=== PATIENT | female | born 2000 | race Caucasian/White ===

== ENCOUNTER 2019-12-27 10:50 | Outpatient (CLI) | payer BC, SELFPAY ==
--- NOTE | ~2019-12-27 | US_ITS ---
EXAMINATION: US OB follow up DATE: 12/27/2019 11:36 INDICATION: Routine care during third trimester . TECHNIQUE: Real-time ultrasound of the pelvis was performed. The interpreting radiologist was not pre sent for the study. COMPARISON: None. FINDINGS: There is a single living fetus in vertex presentation. The placenta is anterior. heart rate is 152 beats per minute (bpm). The amniotic fluid index is 10.7 cm, which is normal (5th%-95%: 8.3-24. 5 cm at 33 weeks estimated gestational age). The following biometric data were obtained: BPD: 7.8 cm -> 31 weeks 3 days Head circumference: 30.7 cm -> 34 weeks 1 days Abdominal circumference: 30.2 cm -> 34 weeks 1 days Femur length: 6.4 cm -> 33 weeks 1 days These measurements are concordant. Head circumference to abdominal circumference ratio: 1.01 (normal range 0.96-1.11). Estimated weight: 2239 g (+/-) 336 g. or 4 lbs. 15 oz. (+/-) 12 oz. IMPRESSION: 1. Single living fetus in vertex presentation with heart rate of 152 bpm. 2. Gestational age by ultrasound of 33 weeks 2 day(s) +/- 2 week(s) 2 day(s) with ultrasound estimate d date of delivery (ARON) of 02/12/2020. Estimated weight is 40th percentile by Hadlock criteria when 02/09/2020 is used as the ARON. Please correlate with clinical information or earlier ultrasound s for most accurate ARON. 3. Normal amniotic fluid index of 10.7 cm. Reviewed, dictated and finalized at location A. L DESIGNER IMPRESSION: 1. Single living fetus in vertex presentation with heart rate of 152 bpm. 2. Gestational age by ultrasound of 33 weeks 2 day(s) +/- 2 week(s) 2 day(s) wi th ultrasound estimated date of delivery (ARON) of 02/12/2020. Estimated w eight is 40th percentile by Hadlock criteria when 02/09/2020 is used as the ARON . Please correlate with clinical information or earlier ultrasounds for most ac curate ARON. 3. Normal amniotic fluid index of 10.7 cm.
== END 2019-12-27 10:51 | disposition home or self-care (01) ==
LOC: ANHIMG 11:01
PROVIDERS: Visit Provider Physician Assistant
DX: Z34.93 Encounter for supervision of normal pregnancy, unspecified, third trimester (principal); Z3A.33 33 weeks gestation of pregnancy
CPT/HCPCS: 76816

== ENCOUNTER 2020-01-29 12:58 | Outpatient (CLI) | payer BC, SELFPAY ==
--- NOTE | ~2020-01-29 | US_ITS ---
EXAMINATION: US OB follow up DATE: 01/29/2020 14:25 INDICATION: growth assessment during third trimester TECHNIQUE: Real-time ultrasound of the pelvis was performed. The interpreting radiologist was not pre sent for the study. COMPARISON: 12/27/2019 FINDINGS: There is a single living fetus in vertex presentation. The placenta is anterior. card iac activity and movement are noted. heart rate is 133 beats per minute (bpm). The amniot ic fluid index is 15.9 cm which is normal. The following biometric data were obtained: Biparietal diameter (BPD): 8.4 cm; head circumference (HC): 30.7 cm; abdominal circumference (AC): 34 .1 cm; femur length (FL): 6.8 cm. The head circumference to abdominal circumference ratio is greater than two standard deviations below the mean. These measurements are otherwise concordant. Estimated weight is 2946 g +/- 441 g, which correlates with the 19th percentile when 02/09/2020 is used as estimated date of delivery. As single measurements, these parameters are each equal to the following estimated gestational ages w ith ranges of +/- 2 standard deviations: BPD: 34 weeks 0 days +/- 3 weeks 1 days. HC: 34 weeks 2 days +/- 3 weeks 0 days. AC: 38 weeks 0 days +/- 3 weeks 0 days. FL: 35 weeks 2 days +/- 3 weeks 0 days. estimated gestational age based solely on measurements from this exam is 35 weeks 3 days +/- 2 weeks 3 days. IMPRESSION: 1. Single living fetus in vertex presentation. 2. Normal amniotic fluid index. 3. Estimated weight is 2946 g +/- 441 g, which correlates with the 19th percentile when 020 is used as estimated date of delivery. 4. Head circumference to abdominal circumference ratio greater than two standard deviations below the mean. Reviewed, dictated and finalized at location A. MING MACHINE OPERATOR IMPRESSION: 1. Single living fetus in vertex presentation. 2. Normal amniotic fluid index. 3. Estimated weight is 2946 g +/- 441 g, which correlates with the p ercentile when 02/09/2020 is used as estimated date of delivery. 4. Head circumference to abdominal circumference ratio greater than two standar d deviations below the mean.
== END 2020-01-29 12:59 | disposition home or self-care (01) ==
PROVIDERS: PCP Physician Assistant; Visit Provider Physician Assistant
DX: Z34.93 Encounter for supervision of normal pregnancy, unspecified, third trimester (principal); Z3A.35 35 weeks gestation of pregnancy
CPT/HCPCS: 76816

== ENCOUNTER 2020-01-30 04:55 | Inpatient (IN) | payer BC, SELFPAY ==
[2020-01-30] VITALS (89 sets, daily range): BP systolic 75–144; BP diastolic 31–110; PULSE 61–130; RESP 16; TEMP 36.2–36.9; O2SAT 92–100; BMI 40.3
[2020-01-30 05:30] LABS: Basophils Absolute Auto 0.1 K/mm3 (0.0-0.1); Basophils Percent Auto 0.4 % (0.2-1.2); Eosinophils Absolute Auto 0.2 K/mm3 (0-0.3); Eosinophils Percent Auto 1.5 % (0-4.4); Hematocrit 34.7 % (37.0-47.0); Hemoglobin 11.7 g/dL (12.0-15.0); Immature Granulocyte Absolute 0.09 K/mm3 (0.00-0.031); Immature Granulocyte Percent A 0.6 % (0-0.5); Lymphocytes Absolute Auto 2.92 K/mm3 (0.9-3.2); Lymphocytes Percent Auto 20.3 % (18.3-44.2); Mean Corpuscular HGB Conc 33.7 g/dl (32-36); Mean Corpuscular Hemoglobin 31.5 pg (26-34); Mean Corpuscular Volume 93.3 fl (80-100); Mean Platelet Volume 9.7 fl (7.4-10.4); Monocytes Percent Auto 7.1 % (2.6-8.5); Neutrophils Absolute Auto 10.1 K/mm3 (1.3-6.7); Neutrophils Percent Auto 70.1 % (45.5-73.1); Platelet Count Result 395 k/mm3 (150-375); Red Blood Count 3.72 M/mm3 (4.2-5.4); Red Cell Distribution Width 13.4 % (11.5-14.5); White Blood Count 14.4 K/mm3 (4.5-10.0)
[2020-01-30 05:42] LABS: Alanine Aminotransferase 11 U/L (4-35); Albumin Level 3.5 g/dL (3.5-5.1); Alkaline Phosphatase 144 U/L (38-126); Anion Gap 8 mmol/L (8-16); Aspartate Amino Transferase 18 U/L (14-36); Bilirubin,Total 0.3 mg/dL (0.2-1.3); Blood Urea Nitrogen 9 mg/dL (7-17); Calcium 8.8 mg/dL (8.4-10.2); Carbon Dioxide 21 mmol/L (22-30); Chloride 107 mmol/L (98-107); Estimated Glomerular Filt Rate > 60; Glucose 98 mg/dL (65-105); Potassium 3.9 mmol/L (3.4-5.0); Sodium 136 mmol/L (137-145)
[2020-01-30] MEDS: LACTATED RINGERS 1,000 ML 125 ML IV CONT ×4 (05:42→18:27)
[2020-01-30] MEDS: OXYTOCIN 30 UNITS/NS 500 ML 30 UNITS/500 ML BAG IV CONT (05:44)
[2020-01-30 05:47] LABS: Uric Acid 6.4 mg/dL (2.5-7.5)
--- NOTE | 2020-01-30 05:54 | LDADM ---
This patient, Lilo Gibson, was admitted to Labor/Delivery/Recovery 105 on 01/30/20 at 04:55. Plans for labor, pain management and were discussed with patient. Patient/family oriented to hospital policies and general routines including ID bracelet, bed and alarms, visiting hours, pain management, procedures, bathroom and other care routines, personal items, smoking policy, room service/diet and guest tray routines, infant security routines, and visiting hours. Patient/Family are encouraged to report perceived risks to care and to ask questions if they do not understand what they are told or what they should do. See OBIX for further documentation.
--- NOTE | 2020-01-30 06:10 | WPDANESEPP ---
Anes - Eval Pre Procedure Procedure: labor epidural Date/Time: 01/30/20 06:10 Surgeon: [email or web address] Pre Op Diagnosis: Induction of Labor Patient Data Age: 19 Gender: F Height: 1.65 m Weight: 110 kg Last Vital Signs Pulse 82 01/30/20 06:00 BP 130/74 01/30/20 06:00 Allergies Allergy/AdvReac Type Severity Reaction Status Date / Time bee venom protein (honey bee) Allergy Anaphylaxis Verified 01/11/20 15:34 [bees] Penicillins Allergy Hives Verified 01/11/20 15:34 Home Medications Medication Instructions Recorded Confirmed Type PNV cmb#95-ferrous fumarate-FA 1 tablet PO DAILY 01/11/20 01/30/20 History [] albuterol sulfate [ProAir HFA] 2 puff INHALATION QID PRN 01/11/20 01/30/20 History aspirin 81 mg PO DAILY 01/11/20 01/30/20 History folic acid 5 mg PO WEEKLY 01/11/20 01/30/20 History Laboratory Tests 01/30/20 01/30/20 01/30/20 05:19 05:19 05:19 WBC 14.4 K/mm3 H K/mm3 (4.5-10.0) RBC 3.72 M/mm3 L M/mm3 (4.2-5.4) Hgb 11.7 g/dL L g/dL (12.0-15.0) Hct 34.7 % L % (37.0-47.0) MCV 93.3 fl fl (80-100) MCH 31.5 pg pg (26-34) MCHC 33.7 g/dl g/dl (32-36) RDW 13.4 % % (11.5-14.5) Plt Count 395 k/mm3 H k/mm3 (150-375) MPV 9.7 fl fl (7.4-10.4) Immature Gran % (Auto) 0.6 % H % (0-0.5) Neut % (Auto) 70.1 % % (45.5-73.1) Lymph % (Auto) 20.3 % % (18.3-44.2) [place] % (Auto) 7.1 % % (2.6-8.5) Eos % (Auto) 1.5 % % (0-4.4) Baso % (Auto) 0.4 % % (0.2-1.2) Lymph # (Auto) 2.92 K/mm3 K/mm3 (0.9-3.2) [place] # (Auto) 1.0 K/mm3 H K/mm3 (0.1-0.6) Eos # (Auto) 0.2 K/mm3 K/mm3 (0-0.3) Baso # (Auto) 0.1 K/mm3 K/mm3 (0.0-0.1) Abs Immat Gran (auto) 0.09 K/mm3 H K/mm3 (0.00-0.031) Absolute Neuts (auto) 10.1 K/mm3 H K/mm3 (1.3-6.7) Absolute Nucleated RBC 0.0 K/mm3 K/mm3 (0.0-0.012) Nucleated RBC % 0.0 % % (0.0-0.2) Sodium Potassium Chloride Carbon Dioxide Anion Gap BUN Creatinine Estim Creat Clear Calc Estimated GFR Glucose Uric Acid 6.4 mg/dL mg/dL (2.5-7.5) Calcium Total Bilirubin AST ALT Alkaline Phosphatase Total Protein Albumin RPR Pending 01/30/20 05:19 WBC RBC Hgb Hct MCV MCH MCHC RDW Plt Count MPV Immature Gran % (Auto) Neut % (Auto) Lymph % (Auto) [place] % (Auto) Eos % (Auto) Baso % (Auto) Lymph # (Auto) [place] # (Auto) Eos # (Auto) Baso # (Auto) Abs Immat Gran (auto) Absolute Neuts (auto) Absolute Nucleated RBC Nucleated RBC % Sodium 136 mmol/L L mmol/L (137-145) Potassium 3.9 mmol/L mmol/L (3.4-5.0) Chloride 107 mmol/L mmol/L (98-107) Carbon Dioxide 21 mmol/L L mmol/L (22-30) Anion Gap 8 mmol/L mmol/L (8-16) BUN 9 mg/dL mg/dL (7-17) Creatinine 0.60 mg/dL L mg/dL (0.7-1.0) Estim Creat Clear Calc Not Reportable Estimated GFR > 60 (59 - ) Glucose 98 mg/dL mg/dL (65-105) Uric Acid Calcium 8.8 mg/dL mg/dL (8.4-10.2) Total Bilirubin 0.3 mg/dL mg/dL (0.2-1.3) AST 18 U/L U/L (14-36) ALT 11 U/L U/L (4-35) Alkaline Phosphatase 144 U/L H U/L (38-126) Total Protein 7.0 g/dL g/dL (6.3-8.2) Albumin 3.5 g/dL g/dL (3.5-5.1) RPR Patient hx anesthesia problems: none Family hx anesthesia problems: none PMFSH Family History Family History (Updated 01/11/20 @ 15:38 by Tate Cui, YUE) Mother Diabetes mellitus Gastritis Depression Fa
--- NOTE | 2020-01-30 06:20 | PM.IMHP ---
H&P: HPI History of Present Illness Date/Time: 01/30/20 06:20 Chief complaint: Induction of Labor Narrative: Lilo Gibson is a 19 year old female at 38w4d gestation presenting for induction of labor due to PIH. +GBS, +MTHFR, smoker and obesity 24 hour urine collection revealed 777mg protein along with her extensive edema and her BP is 30/15 above her baseline 90/50 all is c/w PIH placenta disease. I explained her condition the procedure and risks including maternal or indications for c section with risks involved including but not limited to bleeding infection injury to bladder bowel baby dvt pneumonia wound infection uti and risks of post hemorrhage She understands accepts and agrees to proceed Review of Systems Review of Systems: All systems reviewed & are unremarkable except as noted in HPI and below Constitutional: Constitutional: Reports no additional constitutional complaints and Reports weight gain Eyes: Eyes: Reports blurry vision and Reports change in vision ENT: Reports system reviewed and no additional complaints, except as documented Cardiovascular: Cardiovascular: Reports no additional cardiovascular complaints and Reports edema Respiratory: Respiratory: Reports no additional respiratory complaints Gastrointestinal: Gastrointestinal: Reports no additional gastrointestinal complaints and Reports constipation Genitourinary: Genitourinary: Reports no additional female genitourinary complaints Musculoskeletal: Musculoskeletal: Reports muscle cramps Integumentary/Breasts: Skin/Breast: Reports swelling and Reports striae Neurologic: Reports system reviewed and no additional complaints, except as documented, Reports headache(s) and Reports Other visual disturbances Psychiatric: Psychiatric: Reports no additional psychiatric complaints Endocrine: Endocrine: Reports no additional endocrine complaints Hematologic/Lymphatic: Hematologic/Lymphatic: Reports no additional hematologic/lymphatic complaints Allergic/Immunologic: Allergic/Immunologic: Reports no additional allergic/immunologic complaints FORMERLY [facility], 1928–1983 Past Medical History Medical History Asthma Compound heterozygous MTHFR mutation [id number] Depression HÉCTOR (generalized anxiety disorder) GBS (group B Streptococcus carrier), +RV culture, currently GERD (gastroesophageal reflux disease) History of miscarriage 01/04/18 Obesity 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 Smoker Surgical History Surgical History (Updated 01/30/20 @ 06:55 by Koffi Altamirano MD) History of brain surgery 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 developed seizures at that time Family History Family History (Updated 01/11/20 @ 15:38 by Tate Cui RN) Mother Diabetes mellitus Gastritis Depression Father Sibling Depression Social History Social History (Updated 01/30/20 @ 06:56 by Koffi Altamirano MD) Smoking packs per day: 0.5 Smoking cigarettes per day: 10.0 Years smoked: 5 Smoking pack-years: 2.50 Smoking status: Current every day smoker Tobacco type: cigarettes Alcohol intake: never Substance use: never Living arrangements: with family Occupation/Education: unemployed Gender identity (if verbalized by the patient): Female Sexual Orientation (if Verbalized by the Patient): Straight or Heterosexual Spiritual care concerns: No Agree to blood products: Yes Meds Home Medications and Allergies Home Medications Medication Instructions Recorded Confirmed Type PNV cmb#95-ferrous fumarate-FA 1 tablet PO DAILY 01/11/20 01/30/20 History [] albuterol sulfate [ProAir HFA] 2 puff INHALATION QID PRN 01/11/20 01/30/20 History aspirin 81 mg PO DAILY 01/11/20 01/30/20 History folic acid 5 mg PO WEEKLY 01/11/20 01/30/20 History Allergies Allergy/AdvReac Type Severity Reaction Status Date / Time bee venom protein (honey bee) Allerg
--- NOTE | 2020-01-30 06:34 | WPDHPUPDATE1 ---
History and Physical Update Update Date/Time: 01/30/20 06:34 History and Physical has been reviewed, including an updated exam of the patient. There are NO changes in the patient's condition. Risks, benefits, and alternatives have been discussed and questions answered. Patient agrees to proceed with procedure. Lilo Gibson is a 19 year old female at 38w4d gestation presenting for induction of labor due to PIH. +GBS, +MTHFR, smoker and obesity
--- NOTE | 2020-01-30 06:34 | WPDOBADMIT ---
Obstetrics - Admit Note Admission Note: record reviewed. No pertinent additions to the history and/or any subsequent changes in the physical findings that are not consistent with the expected course of the were found. Additions to the history and/or subsequent changes in the physical findings follow. None. Lilo Gibson is a 19 year old female at 38w4d gestation presenting for induction of labor due to PIH. +GBS, +MTHFR, smoker and obesity
[2020-01-30 13:34] LABS: Rapid Plasma Reagin Non-Reactive (NonReactive)
--- NOTE | 2020-01-30 17:34 | PM.OBPNLAB ---
Pain Control Date/time seen: 01/30/20 10:34 Pain control: tolerating well Comments: SROM clear amniotic fluid Pelvic Exam Dilation (cm): 4 Effacement (%): 70 station: -3 Amniotic membrane status: Ruptured Contractions Monitor mode: External Contraction frequency: 3 Contraction pattern: Regular Contraction phase: Contraction Contraction intensity: Moderate Status status: Category l Assessment and Plan Pitocin rate (mU/min): 6 Assessment: active labor Plan: continuous present management
--- NOTE | 2020-01-30 17:35 | PM.OBPNLAB ---
Pain Control Date/time seen: 01/30/20 14:35 Pain control: tolerating well and epidural Pelvic Exam Dilation (cm): 6 Effacement (%): 70 station: -3 Amniotic membrane status: Ruptured Contractions Monitor mode: Internal (iupc/fse placed) Contraction frequency: 3 Contraction pattern: Regular Contraction phase: Contraction Contraction intensity: Moderate Status status: Category l Assessment and Plan Pitocin rate (mU/min): 12 Assessment: active labor and induction ongoing Plan: continuous present management
--- NOTE | 2020-01-30 17:37 | PM.OBPNLAB ---
Pain Control Date/time seen: 01/30/20 16:37 Pain control: tolerating well and epidural Pelvic Exam Dilation (cm): 9 Effacement (%): 100 station: -2 Amniotic membrane status: Ruptured Contractions Monitor mode: Internal (iupc/fse placed) Contraction frequency: 3 Contraction pattern: Regular Contraction phase: Contraction Contraction intensity: Moderate Status status: Category l Assessment and Plan Pitocin rate (mU/min): 10 Assessment: active labor and induction ongoing Plan: continuous present management
--- NOTE | 2020-01-30 17:38 | PM.OBPNLAB ---
Pain Control Date/time seen: 01/30/20 17:30 Pelvic Exam Dilation (cm): 10 Effacement (%): 100 station: +1 Amniotic membrane status: Ruptured Contractions Monitor mode: Internal (iupc/fse placed) Contraction frequency: 3 Contraction pattern: Regular Contraction phase: Contraction Contraction intensity: Moderate Status status: Category l Assessment and Plan Assessment: active labor and other (complete stage 1) Plan: continuous present management (begin stage 2)
--- NOTE | 2020-01-30 17:39 | PM.OBPRVD ---
OB - Delivery Note Procedure Delivery date: 01/30/20 Procedure: Normal spontaneous vertex vaginal delivery a viable female infant and placenta over a second-degree midline episiotomy Repair of second-degree midline episiotomy events: Induced HTN and Labor Induction Intrapartal events: None Induction method: per pitocin protocol Delivery monitor: internal FHT and internal uterine Route of delivery: Episiotomy description: Midline Laceration Description: None Delivery repair: vicryl (2-0) Specimen: Yes (Placenta, cord blood, cord blood gases) Quantitative Blood Loss (ml): 500 Anesthesia type: Epidural Disposition: floor Complications: None Narrative: After pushing in 2nd stage of labor using maneuvers including tug of war with sheet a normal spontaneous vertex vaginal delivery occurred occiput posterior over second-degree midline episiotomy of a viable female infant which was delivered without difficulty shoulder spontaneously and placed on the maternal abdomen where the nose and throat were bulb suction or spontaneous respirations and cry and the cord was clamped and cut the was evaluated by the nursery nurse in attendance scores given 8 9 time of delivery 1912 weight 6 lb 1 oz after cord gases and cord blood were obtained the placenta was then delivered intact with a three-vessel cord the uterus contracted well with Pitocin given intravenously. Second-degree midline episiotomy was then repaired with 2 0 Vicryl suture in a running fashion with the knot left in the vagina the cervix and rectum were checked no sponges were left in the vagina fistula the sphincter was intact the hemorrhoids were decompressed and the mom was in stable condition in LDR room 105. [place] Date of : 01/30/20 Time of : 19:13 Weeks of gestation at delivery: 39 gender: Female Weight (pounds): 6 Weight (ounces): 1 presentation: vertex position: Left Occiput Posterior Placenta delivery description: Spontaneous and Normal Configuration cord vessel description: 3 Vessels score one minute: 8 score five minutes: 9 Narrative: Baby had normal transition and was taken to the nursery in stable condition no gross abnormalities on the exam
[2020-01-30] MEDS: OXYTOCIN 30 UNITS/NS 500 ML 30 UNITS/500 ML BAG 125 UNITS IV CONT (19:30)
--- NOTE | 2020-01-30 19:38 | PM.OBDSVD ---
DS: Admitting Diagnosis Admitting Diagnosis Admitting Diagnosis: Induction of Labor Term MTHFR heterozygous compound -induced edema and proteinuria without hypertension Group B strep carrier Obesity Smoker Depression GERD Maternal varicella nonimmune DS: Discharge Diagnosis Discharge Diagnosis (1) Term delivered: Code(s): O80 - Encounter for full-term uncomplicated delivery Status: Acute (2) Direct occiput posterior presentation of fetus: Code(s): O64.0XX0 - Obstructed labor due to incomplete rotation of head, not applicable or unspecified Status: Acute (3) Hemorrhoids during puerperium: Code(s): O87.2 - Hemorrhoids in the puerperium Status: Acute (4) Compound heterozygous MTHFR mutation C677T/[id number]: Code(s): E72.12 - Methylenetetrahydrofolate reductase deficiency Status: Acute (5) -induced edema and proteinuria without hypertension: Code(s): O12.20 - Gestational edema with proteinuria, unspecified trimester Status: Acute (6) GBS (group B Streptococcus carrier), +RV culture, currently : Code(s): O99.820 - Streptococcus B carrier state complicating Status: Acute (7) Depression: Code(s): F32.9 - Major depressive disorder, single episode, unspecified Status: Acute (8) Maternal varicella, non-immune: Code(s): O09.899 - Supervision of other high risk pregnancies, unspecified trimester; Z28.3 - Underimmunization status Status: Acute (9) Obesity: Code(s): E66.9 - Obesity, unspecified Status: Acute (10) Smoker: Code(s): F17.200 - Nicotine dependence, unspecified, uncomplicated Status: Acute OB - DS: Summary Hospital Course Time spent discussing smoking cessation with patient: 3 to 10 minutes OB Procedures : Ultrasound OB Procedures Intrapartum: Spontaneous Vag Delivery, Episiotomy and GBS prophylaxis OB Procedures: : None Peripartum Data Delivery Method: Natural Vaginal Laceration Description: None Episiotomy description: Midline complications: none 1: Gender: Female (Leelee) Disposition of : home Status at Discharge Functional status at discharge: independent ambulation Overall status at discharge: patient is back to baseline Time Spent with Patient Time attestation: Total time spent providing and/or coordinating discharge services: Time spent: Less than 30 minutes Exam Const: General: cooperative, healthy appearing, comfortable, no acute distress, well developed, alert, awake and Physically active HENMT: Head: normal to inspection Eyes: General: appearance normal, both eyes and all related structures Neck: Neck: normal visual inspection Chest: Chest palpation & inspection: normal inspection of the chest Resp: Effort & Inspection: normal respiratory effort Cardio: Rate: regular rate Rhythm: regular rhythm GI: Inspection: normal to inspection GI Palp: Yes Soft to palpation Rectal Exam: hemorrhoids : External Female Exam: normal external appearance Bimanual exam- vagina & uterus: non-tender Back/Spine/Pelvis: Back: no CVA tenderness Skin: General skin exam: normal color Neuro: General: patient oriented x3 Extrem: General: normal to inspection, full ROM and no calf tenderness Psych: Appearance: grossly normal Mental Status: mental status grossly normal Speech and movement: Normal speech and movement present Affect: normal affect Attitude: cooperative Thought process: Normal thought process present Thought content: Yes Normal thought content present Insight: Good insight present (Psych) Judgement: Good judgement present (Psych) DS: Data Data Completed and Pending Labs on day of discharge: Labs from last 24 hours 01/30/20 01/30/20 01/30/20 05:19 05:19 05:19 WBC RBC Hgb Hct MCV MCH MCHC RDW Plt Cou
[2020-01-30] MEDS: LANOLIN (LANSINOH) 7.5 GM CREAM 1 APPLIC TOPICAL (21:29)
[2020-01-30] MEDS: BENZOCAINE 20% AER SPR (*SP) 56 GM CAN 1 SPRAY TOPICAL (21:30)
[2020-01-30] MEDS: WITCH HAZEL 40 PADS 1 PAD TOPICAL (21:30)
[2020-01-30] MEDS: IBUPROFEN 400 MG TABLET 800 MG PO (21:32)
--- NOTE | 2020-01-31 02:11 | PC.NURSE ---
This patient, Lilo Gibson, was received from Labor and Delivery on 01/30/20 at 2157. Patient/family oriented to unit policies and routines
[2020-01-31 05:03] LABS: Hematocrit 25.6 % (37.0-47.0); Hemoglobin 8.7 g/dL (12.0-15.0)
--- NOTE | 2020-01-31 07:26 | WPDANLDPN2 ---
Anes-Prog Note L&D Date/Time: 01/31/20 07:26 Comfortable throughout: labor and delivery Neuraxial method: epidural Epidural/Spinal procedure site: clean & non-tender Neuro status: Neuro function grossly intact. Cardiovascular status: normal Respiratory status: normal Airway patency: baseline Mental status: baseline Post-Op hydration status: normal Vital Signs: Last Vital Signs Temp 36.2 C L 01/30/20 22:00 Pulse 86 01/30/20 22:00 Resp 16 01/30/20 22:00 BP 137/71 01/30/20 22:00 Pulse Ox 97 01/30/20 22:00 Pain score (VAS): 0 I/O: Intake & Output 01/30/20 01/30/20 01/31/20 15:59 23:59 07:59 Intake Total 2250 1000 Output Total 540 Balance 2250 460 Post-procedural complaints: none Patient feedback: Patient satisfied with anesthetic care.
[2020-01-31 07:30] VITALS: BP 103/84; PULSE 87; RESP 18; TEMP 37.5; O2SAT 95
[2020-01-31] MEDS: DOCUSATE SODIUM 100 MG CAPSULE PO ×2 (08:20→17:32)
[2020-01-31] MEDS: IBUPROFEN 400 MG TABLET 800 MG PO ×2 (08:20→17:32)
[2020-01-31] MEDS: POLYSACCHARIDE IRON COMPLEX 150 MG CAPSULE PO ×2 (08:20→17:31)
--- NOTE | 2020-01-31 10:04 | PCCCNOTE ---
SS Note. Received referral to provide resources and support. Met with pt. and FOB at bedside. They live with pt.'s grandmother, aunt and uncle. Grandmother will transport them home at discharge. They have all needed items to care for baby at discharge home. Provided support and area resources, support groups as well as counseling resources for any future reference; discussed other ways to seek assist, support through social media and online due to COVID restrictions with some programs. Encouraged them to contact any/all of interest for their needs as they arise. Pt. and FOB state understanding. They also indicate much family support. Nursing confirms no other concerns at this time. No further SS needs indicated.
[2020-01-31 19:05] VITALS: BP 137/80; PULSE 99; RESP 16; TEMP 37
[2020-02-01 08:15] VITALS: BP 134/65; PULSE 90; RESP 18; TEMP 37.2; O2SAT 97
[2020-02-01] MEDS: IBUPROFEN 400 MG TABLET 800 MG PO (08:38)
[2020-02-01] MEDS: DOCUSATE SODIUM 100 MG CAPSULE PO (08:39)
[2020-02-01] MEDS: POLYSACCHARIDE IRON COMPLEX 150 MG CAPSULE PO (08:39)
--- NOTE | 2020-02-01 09:32 | PM.OBPNVD ---
OB - PN: Subj Subjective Date/time seen: 01/31/20 09:32 Patient comments: no complaints and pain well controlled baby status: doing well [place] feeding status: breast and bottle feeding OB - PN: Obj Data Labs CBC & Chem 7: 01/31/20 04:38 01/30/20 05:19 OB - PN A/P Assessment and Plan (1) Term delivered: Code(s): O80 - Encounter for full-term uncomplicated delivery Status: Acute Plan day: 1 Plan: routine care, discharge home (in am) and follow up 6 weeks Time Spent With Patient Time: Total time spent is greater than 50% in coordination of care (as documented) at patient's floor/unit and/or counseling patient: Time with patient: less than 15 minutes Review of Systems Review of Systems: All systems reviewed & are unremarkable except as noted in HPI and below Exam Const: General: cooperative, healthy appearing, comfortable, no acute distress, well developed, alert, awake and Physically active HENMT: Head: normal to inspection Eyes: General: appearance normal, both eyes and all related structures Neck: Neck: normal visual inspection Chest: Chest palpation & inspection: normal inspection of the chest Breast/axilla inspection: normal inspection of the breasts Resp: Effort & Inspection: normal respiratory effort Auscultation: clear to auscultation bilaterally Cardio: Rate: regular rate Rhythm: regular rhythm Heart sounds: S1 normal heart sound present and S2 normal heart sound present GI: Inspection: normal to inspection GI Palp: Yes Soft to palpation Auscultation: normal bowel sounds : General: Yes no CVA tenderness External Female Exam: normal external appearance Back/Spine/Pelvis: Back: no CVA tenderness Skin: General skin exam: normal color Neuro: General: patient oriented x3, gait normal, tone normal, moves all extremities, Normal light touch and pain sensation, no meningeal signs, no focal motor deficits and CN's II-XI intact bilaterally Extrem: General: normal to inspection, full ROM and no calf tenderness Psych: Appearance: grossly normal Mental Status: mental status grossly normal Speech and movement: Normal speech and movement present Affect: normal affect Attitude: cooperative Thought process: Normal thought process present Thought content: Yes Normal thought content present Insight: Good insight present (Psych) Judgement: Good judgement present (Psych)
--- NOTE | 2020-02-01 13:03 | PC.NURSE ---
Patient viewed the discharge video Mother & Baby Care, The First Two Weeks . Patient was given the opportunity and encouraged to ask questions. Patient verbalized understanding of information shared and has been given the mother/baby guide for home reference.
[2020-02-04 11:11] VITALS: BP 130/77; PULSE 97; RESP 20; TEMP 37.2; O2SAT 98
== END 2020-02-01 13:24 | disposition home or self-care (01) | DRG 560 ==
LOC: ANHLDR 19:50 → ANHOB2 22:16
PROVIDERS: Admitting Provider Obstetrics & Gynecology; PCP Physician Assistant; Visit Provider Obstetrics & Gynecology
DX: O64.0XX0 Obstructed labor due to incomplete rotation of fetal head, not applicable or unspecified (principal); O99.824 Streptococcus B carrier state complicating childbirth; O13.4 Gestational [pregnancy-induced] hypertension without significant proteinuria, complicating childbirth; O76 Abnormality in fetal heart rate and rhythm complicating labor and delivery; O99.334 Smoking (tobacco) complicating childbirth; F17.210 Nicotine dependence, cigarettes, uncomplicated; O99.284 Endocrine, nutritional and metabolic diseases complicating childbirth; E72.12 Methylenetetrahydrofolate reductase deficiency; O99.214 Obesity complicating childbirth; E66.9 Obesity, unspecified; O12.24 Gestational edema with proteinuria, complicating childbirth; Z3A.38 38 weeks gestation of pregnancy; Z37.0 Single live birth
CPT/HCPCS: 36415; 80053; 84550; 85014; 85018; 85025; 86592; 86850; 86900; 86901; 88307; A9270; J2590; J2795; J3370; J7120

== ENCOUNTER 2020-03-19 15:21 | Emergency (ER) | payer BC, SELFPAY ==
--- NOTE | ~2020-03-19 | XR_ITS ---
XR ankle LT min 3V DATE: 03/19/2020 16:20 INDICATION: Slipped on a curb MRI left ankle. TECHNIQUE: 4 views COMPARISON: None FINDINGS: There is mild lateral soft tissue swelling. No fracture or dislocation of the ankle or disr uption of the ankle mortise. No periosteal reaction or bone destruction. IMPRESSION: Mild lateral soft tissue swelling; no fracture or dislocation of the ankle Reviewed, dictated and finalized at location A. N WARE CASTER IMPRESSION: Mild lateral soft tissue swelling; no fracture or dislocation of th e ankle
[2020-03-19 15:24] VITALS: BP 127/74; PULSE 83; RESP 18; TEMP 36.4; O2SAT 95
--- NOTE | 2020-03-19 16:31 | ED.GENADULT ---
HPI - General Adult General Chief complaint: Extremity Injury, Lower Stated complaint: left foot Time Seen by Provider: 03/19/20 16:01 Source: patient and RN notes reviewed Mode of arrival: ambulatory Limitations: no limitations History of Present Illness HPI narrative: Patient a 19-year-old female who presents with left ankle injury that occurred after miss stepping prior day patient notes aching pain to the ankle joint worse with weightbearing and activity mild swelling laterally denies other injuries or complaints presents in no distress Related Data Home Medications Medication Instructions Recorded Confirmed PNV cmb#95-ferrous fumarate-FA 1 tablet PO DAILY 01/11/20 01/30/20 [] albuterol sulfate [ProAir HFA] 2 puff INHALATION QID PRN 01/11/20 01/30/20 aspirin 81 mg PO DAILY 01/11/20 01/30/20 folic acid 5 mg PO WEEKLY 01/11/20 01/30/20 escitalopram oxalate mg 03/19/20 Allergies Allergy/AdvReac Type Severity Reaction Status Date / Time bee venom protein (honey bee) Allergy Anaphylaxis Verified 03/19/20 15:37 [bees] Penicillins Allergy Hives Verified 03/19/20 15:37 Review of Systems Review of Systems: All systems reviewed & are unremarkable except as noted in HPI and below PMFSH Past Medical History Medical History Asthma Compound heterozygous MTHFR mutation [id number] Depression HÉCTOR (generalized anxiety disorder) GBS (group B Streptococcus carrier), +RV culture, currently GERD (gastroesophageal reflux disease) History of miscarriage 01/04/18 Maternal varicella, non-immune Obesity 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 Smoker Surgical History Surgical History History of brain surgery 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 developed seizures at that time Family History Family History (Updated 01/11/20 @ 15:38 by Tate Cui RN) Mother Diabetes mellitus Gastritis Depression Father Sibling Depression Social History Social History Smoking packs per day: 0.5 Smoking cigarettes per day: 10.0 Years smoked: 5 Smoking pack-years: 2.50 Smoking status: Current every day smoker Tobacco type: cigarettes Alcohol intake: never Substance use: never Gender identity (if verbalized by the patient): Female Sexual Orientation (if Verbalized by the Patient): Straight or Heterosexual Spiritual care concerns: No Agree to blood products: Yes Exam Narrative: Exam Narrative: GENERAL: Well-appearing, well-nourished, and in no acute distress. HEAD: Normocephalic, atraumatic. EYES: PERRLA and EOMI. ENT: Nares clear, no rhinorrhea or epistaxis. Mucous membranes moist. EXTREMITIES: Normal range of motion. No edema. Lateral tenderness and swelling over the left ankle SKIN: Warm, dry, no rash. NEURO: No focal deficits. Alert and oriented x3. Neurovascularly intact. Capillary refill less than 2 seconds PSYCH: Normal mood and affect. Course Course Emergency Course: Patient with likely ankle sprain will be managed accordingly with orthopedic follow-up as needed or primary care Vital Signs Vital signs: Vital Signs Temperature 97.5 F L 03/19/20 15:24 Pulse Rate 83 03/19/20 15:24 Respiratory Rate 18 03/19/20 15:24 Blood Pressure 127/74 03/19/20 15:24 Pulse Oximetry 95 03/19/20 15:24 Temperature 97.5 F L 03/19/20 15:24 Pulse Rate 83 03/19/20 15:24 Respiratory Rate 18 03/19/20 15:24 Blood Pressure 127/74 03/19/20 15:24 Pulse Oximetry 95 03/19/20 15:24 Medical Decision Making MDM Narrative Medical decision making narrative: Patients injury or pain is consistent with musculoskeletal etiology. No signs of neurological or vascular compromise on exam. Compartments and tisues are soft without signs of compartment syndrome. Pain is felt appropriate for furthe
== END 2020-03-19 16:56 | disposition home or self-care (01) ==
PROVIDERS: Emergency Provider Emergency Medicine; Family Provider Pediatrics; PCP Physician Assistant
DX: S93.402A Sprain of unspecified ligament of left ankle, initial encounter (principal); J45.909 Unspecified asthma, uncomplicated; F32.9 Major depressive disorder, single episode, unspecified; F41.9 Anxiety disorder, unspecified; K21.9 Gastro-esophageal reflux disease without esophagitis; F17.210 Nicotine dependence, cigarettes, uncomplicated; W18.40XA Slipping, tripping and stumbling without falling, unspecified, initial encounter
CPT/HCPCS: 73610; 99283

== ENCOUNTER 2020-04-03 14:16 | Emergency (ER) | payer BC, SELFPAY ==
[2020-04-03 14:27] VITALS: BP 126/64; PULSE 66; RESP 16; TEMP 36.2; O2SAT 96
[2020-04-03 15:03] LABS: Alanine Aminotransferase 23 U/L (4-35); Albumin Level 4.1 g/dL (3.5-5.1); Alkaline Phosphatase 106 U/L (38-126); Anion Gap 5 mmol/L (8-16); Aspartate Amino Transferase 27 U/L (14-36); Bilirubin,Total 0.3 mg/dL (0.2-1.3); Blood Urea Nitrogen 14 mg/dL (7-17); Calcium 8.9 mg/dL (8.4-10.2); Carbon Dioxide 29 mmol/L (22-30); Chloride 105 mmol/L (98-107); Estimated Glomerular Filt Rate > 60; Glucose 109 mg/dL (65-105); Lipase 21 U/L (23-300); Potassium 4.1 mmol/L (3.4-5.0); Sodium 139 mmol/L (137-145)
[2020-04-03 15:56] LABS: Basophils Absolute Auto 0.1 K/mm3 (0.0-0.1); Basophils Percent Auto 0.8 % (0.2-1.2); Eosinophils Absolute Auto 0.4 K/mm3 (0-0.3); Eosinophils Percent Auto 3.8 % (0-4.4); Hematocrit 35.8 % (37.0-47.0); Hemoglobin 11.2 g/dL (12.0-15.0); Immature Granulocyte Absolute 0.05 K/mm3 (0.00-0.031); Immature Granulocyte Percent A 0.5 % (0-0.5); Lymphocytes Absolute Auto 2.54 K/mm3 (0.9-3.2); Lymphocytes Percent Auto 27.9 % (18.3-44.2); Mean Corpuscular HGB Conc 31.3 g/dl (32-36); Mean Corpuscular Hemoglobin 27.8 pg (26-34); Mean Corpuscular Volume 88.8 fl (80-100); Mean Platelet Volume 9.3 fl (7.4-10.4); Monocytes Absolute Auto 0.7 K/mm3 (0.1-0.6); Monocytes Percent Auto 8.1 % (2.6-8.5); Neutrophils Absolute Auto 5.4 K/mm3 (1.3-6.7); Neutrophils Percent Auto 58.9 % (45.5-73.1); Platelet Count Result 459 k/mm3 (150-375); Red Blood Count 4.03 M/mm3 (4.2-5.4); Red Cell Distribution Width 14.6 % (11.5-14.5); White Blood Count 9.1 K/mm3 (4.5-10.0)
[2020-04-03 16:01] LABS: Add Urine Microscopic? YES; Appearance Urine Clear (Clear); Bacteria Urine Trace /hpf; Bilirubin Urine Negative (Negative); Blood Urine 2+ (Negative); Color Urine Yellow (Yellow); Glucose Urine UA Negative (Negative); Ketones Urine Negative (Negative); Leukocyte Esterase Ur Negative LEU/UL (Negative); Nitrate Urine Negative (Negative); Protein Urine 1+ mg/dL (Negative); Squamous Epithelial Cell Urine Many /hpf (Few); Urobilinogen Urine Negative mg/dL (<2.0); WBC Urine 0-3 /hpf
--- NOTE | 2020-04-03 18:10 | PC.NURSE ---
Patient called, with no answer. patient skipped for room assignment
--- NOTE | 2020-04-03 18:16 | PC.NURSE ---
Patient advised to remain PO until evaluated by the provider. patient continued to eat from vending machine.
[2020-04-03 18:26] VITALS: BP 147/92; PULSE 88; RESP 17; TEMP 36.8; O2SAT 97
[2020-04-03] MEDS: MAG HYDROX/AL HYDROX/SIMETH 30 ML UDC PO (18:49)
[2020-04-03] MEDS: LIDOCAINE HCL 2% VISC SOLN 15 ML UDC 20 ML PO (18:49)
--- NOTE | 2020-04-03 18:50 | ED.GENADULT ---
HPI - General Adult General Chief complaint: Abdominal Pain Stated complaint: abdominal pain Time Seen by Provider: 04/03/20 18:08 Source: patient Mode of arrival: ambulatory Limitations: no limitations History of Present Illness HPI narrative: Patient is a 19-year-old female who presented to emergency department with 1 week duration of upper abdominal pain across the upper abdomen described as a burning pain and aching pain patient has taken some Tums which she notes seems to have helped with the burning but the discomfort has persisted patient denies similar occurrence in the past notes that she is a little over 2 weeks has not had any vaginal issues or complications from the patient notes that she is currently not breast-feeding Related Data Home Medications Medication Instructions Recorded Confirmed PNV cmb#95-ferrous fumarate-FA 1 tablet PO DAILY 01/11/20 01/30/20 [] albuterol sulfate [ProAir HFA] 2 puff INHALATION QID PRN 01/11/20 01/30/20 aspirin 81 mg PO DAILY 01/11/20 01/30/20 folic acid 5 mg PO WEEKLY 01/11/20 01/30/20 escitalopram oxalate mg 03/19/20 Allergies Allergy/AdvReac Type Severity Reaction Status Date / Time bee venom protein (honey bee) Allergy Anaphylaxis Verified 04/03/20 18:24 [bees] Penicillins Allergy Hives Verified 04/03/20 18:24 Review of Systems Review of Systems: All systems reviewed & are unremarkable except as noted in HPI and below PMFSH Past Medical History Medical History Asthma Compound heterozygous MTHFR mutation [id number] Depression HÉCTOR (generalized anxiety disorder) GBS (group B Streptococcus carrier), +RV culture, currently GERD (gastroesophageal reflux disease) History of miscarriage 01/04/18 Maternal varicella, non-immune Obesity 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 Smoker Surgical History Surgical History History of brain surgery 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 developed seizures at that time Family History Family History (Updated 01/11/20 @ 15:38 by Tate Cui RN) Mother Diabetes mellitus Gastritis Depression Father Sibling Depression Social History Social History Smoking packs per day: 0.5 Smoking cigarettes per day: 10.0 Years smoked: 5 Smoking pack-years: 2.50 Smoking status: Current every day smoker Tobacco type: cigarettes Alcohol intake: never Substance use: never Gender identity (if verbalized by the patient): Female Spiritual care concerns: No Agree to blood products: Yes Exam Narrative: Exam Narrative: GENERAL: Well-appearing, obese, and in no acute distress. HEAD: Normocephalic, atraumatic. EYES: PERRLA and EOMI. ENT: Nares clear, no rhinorrhea or epistaxis. Mucous membranes moist. CHEST: Clear to auscultation. No respiratory distress. No wheezes rales or rhonchi HEART: Regular rate and rhythm. No murmur heard. ABDOMEN: Soft, tenderness in the upper quadrants of the abdomen no rebound or guarding, nondistended, normal active bowel sounds. EXTREMITIES: Normal range of motion. No edema. SKIN: Warm, dry, no rash. NEURO: No focal deficits. Alert and oriented x3. PSYCH: Normal mood and affect. Course Course Emergency Course: Patient in the room at this time in no distress aware of case findings treatment plan diagnosis agreeing to follow-up as directed or to return if symptoms worsen or concerns patient is afebrile nontoxic-appearing no high risk changes in the blood work. Patient was given a GI cocktail and Pepcid in the emergency department discussion was made with the patient in regards to her abdominal pain patient will try a bland diet with antiacids and follow-up with primary care agrees to return if symptoms worsen for consideration of imaging and further evaluation. Juan Carlos
[2020-04-03] MEDS: FAMOTIDINE 20 MG TABLET PO (19:04)
== END 2020-04-03 19:10 | disposition home or self-care (01) ==
PROVIDERS: Emergency Medicine; Emergency Provider Emergency Medicine; PCP Physician Assistant
DX: O99.893 Other specified diseases and conditions complicating puerperium (principal); R10.10 Upper abdominal pain, unspecified; O99.53 Diseases of the respiratory system complicating the puerperium; J45.909 Unspecified asthma, uncomplicated; O99.63 Diseases of the digestive system complicating the puerperium; K21.9 Gastro-esophageal reflux disease without esophagitis; O99.345 Other mental disorders complicating the puerperium; F41.1 Generalized anxiety disorder; F32.9 Major depressive disorder, single episode, unspecified; O99.335 Smoking (tobacco) complicating the puerperium; F17.210 Nicotine dependence, cigarettes, uncomplicated; Z87.820 Personal history of traumatic brain injury; Z79.82 Long term (current) use of aspirin
CPT/HCPCS: 36415; 80053; 81001; 81025; 83690; 85025; 99283; A9270

== ENCOUNTER 2020-09-23 15:13 | Emergency (ER) | payer BC, SELFPAY ==
[2020-09-23] VITALS (12 sets, daily range): BP systolic 105–147; BP diastolic 63–87; PULSE 52–75; RESP 14–18; TEMP 36.3; O2SAT 96–100
--- NOTE | ~2020-09-23 | US_ITS ---
EXAMINATION: US abdomen limited DATE: 09/23/2020 18:01 INDICATION: Right upper quadrant abdominal pain. TECHNIQUE: Multiple grayscale and Doppler ultrasound images of the abdomen were obtained. COMPARISON: None FINDINGS: The visualized portions of the head, body, and tail of the pancreas are normal. The liver i s normal without focal lesion. There is normal flow in main portal vein. The gallbladder is normal in size and contains gallstones. No gallbladder wall thickening. There was a positive sonographic Anil y sign. The common duct is normal and measures 2 mm. IMPRESSION: 1. Cholelithiasis and positive sonographic [place] sign, but no gallbladder distention or gallbladder wall thickening to suggest acute cholecystitis. Reviewed, dictated and finalized at location A. IMPRESSION: 1. Cholelithiasis and positive sonographic [place] sign, but no gallbladder dist ention or gallbladder wall thickening to suggest acute cholecystitis.
--- NOTE | 2020-09-23 15:26 | ECG_ITS ---
Measurements Intervals [place] Rate: 65 P: 59 AK: 169 QRS: 55 QRSD: 87 T: 42 QT: 382 QTc: 398 Interpretive Statements SINUS RHYTHM MINIMAL Q WAVES- INFERIOR LEADS BORDERLINE ECG Electronically Signed On 09-23-2020 15:58:08 CDT by Ayan Klein D.O.
[2020-09-23 16:00] LABS: Basophils Absolute Auto 0.1 K/mm3 (0.0-0.1); Basophils Percent Auto 0.5 % (0.2-1.2); Eosinophils Absolute Auto 0.3 K/mm3 (0-0.3); Eosinophils Percent Auto 2.7 % (0-4.4); Hematocrit 37.7 % (37.0-47.0); Hemoglobin 11.6 g/dL (12.0-15.0); Immature Granulocyte Absolute 0.03 K/mm3 (0.00-0.031); Immature Granulocyte Percent A 0.3 % (0-0.5); Lymphocytes Absolute Auto 2.55 K/mm3 (0.9-3.2); Lymphocytes Percent Auto 25.8 % (18.3-44.2); Mean Corpuscular HGB Conc 30.8 g/dl (32-36); Mean Corpuscular Hemoglobin 26.1 pg (26-34); Mean Corpuscular Volume 84.9 fl (80-100); Mean Platelet Volume 9.6 fl (7.4-10.4); Monocytes Absolute Auto 0.8 K/mm3 (0.1-0.6); Monocytes Percent Auto 7.7 % (2.6-8.5); Neutrophils Absolute Auto 6.2 K/mm3 (1.3-6.7); Platelet Count Result 449 k/mm3 (150-375); Red Blood Count 4.44 M/mm3 (4.2-5.4); Red Cell Distribution Width 18.8 % (11.5-14.5); White Blood Count 9.9 K/mm3 (4.5-10.0)
[2020-09-23 16:04] LABS: Alanine Aminotransferase 17 U/L (4-35); Albumin Level 4.4 g/dL (3.5-5.1); Alkaline Phosphatase 110 U/L (38-126); Anion Gap 8 mmol/L (8-16); Aspartate Amino Transferase 27 U/L (14-36); Bilirubin,Total 0.4 mg/dL (0.2-1.3); Blood Urea Nitrogen 8 mg/dL (7-17); Calcium 9.2 mg/dL (8.4-10.2); Carbon Dioxide 29 mmol/L (22-30); Chloride 102 mmol/L (98-107); Estimated CRCL calculation 130 ml/min; Estimated Glomerular Filt Rate > 60; Glucose 81 mg/dL (65-110); Lipase 36 U/L (23-300); Potassium 3.6 mmol/L (3.4-5.0); Sodium 139 mmol/L (137-145)
[2020-09-23 16:08] LABS: Add Urine Microscopic? YES; Appearance Urine Cloudy (Clear); Bacteria Urine Trace /hpf; Bilirubin Urine Negative (Negative); Blood Urine 3+ (Negative); Color Urine Yellow (Yellow); Glucose Urine UA Negative (Negative); Ketones Urine Negative (Negative); Leukocyte Esterase Ur 1+ LEU/UL (Negative); Nitrate Urine Negative (Negative); Protein Urine Negative (Negative); RBC Urine >75 /hpf (0-2); Specific Grav Ur 1.016 (1.001-1.035); Squamous Epithelial Cell Urine Rare /hpf (Few); Urobilinogen Urine Negative mg/dL (<2.0)
--- NOTE | 2020-09-23 18:04 | ED.ABDPAIN ---
HPI - Abdominal Pain General Chief Complaint: Abdominal Pain Stated Complaint: Rib Pain,Back Pain x 4 days Time Seen by Provider: 09/23/20 17:24 Source: patient Mode of arrival: ambulatory Limitations: no limitations History of Present Illness HPI narrative: 20-year-old female Complains of a 4-day history of abdominal pain which is getting a little bit worse It is mainly in the upper abdomen and does seem to spread to both sides, into the upper back on the right and sometimes into her chest She can think of anything that is really made it better or worse She had several loose stools today No fever No urinary symptoms including no dysuria or hematuria or frequency, she is on her period right now Related Data Home Medications Medication Instructions Recorded Confirmed PNV cmb#95-ferrous fumarate-FA 1 tablet PO DAILY 01/11/20 01/30/20 [] albuterol sulfate [ProAir HFA] 2 puff INHALATION QID PRN 01/11/20 01/30/20 aspirin 81 mg PO DAILY 01/11/20 01/30/20 folic acid 5 mg PO WEEKLY 01/11/20 01/30/20 escitalopram oxalate mg 03/19/20 Allergies Allergy/AdvReac Type Severity Reaction Status Date / Time bee venom protein (honey bee) Allergy Anaphylaxis Verified 09/23/20 17:35 [bees] Penicillins Allergy Hives Verified 09/23/20 17:35 Review of Systems Review of Systems: All systems reviewed & are unremarkable except as noted in HPI and below Constitutional: Constitutional: Reports no additional constitutional complaints, Denies chills, Denies fever(s) and Denies headache(s) Eyes: Eyes: Reports no additional eye complaints and Denies change in vision ENT: Denies headache(s) and Denies sore throat Cardiovascular: Cardiovascular: Denies chest pain and Denies dyspnea Respiratory: Respiratory: Denies cough and Denies dyspnea Gastrointestinal: Gastrointestinal: Reports abdominal pain, Reports diarrhea, Reports nausea and Reports vomiting Genitourinary: Genitourinary: Denies hematuria, Denies urinary frequency and Denies dysuria Musculoskeletal: Musculoskeletal: Denies deformity, Denies arthralgias, Denies joint swelling and Denies numbness Integumentary/Breasts: Skin/Breast: Denies rash and Denies wounds Neurologic: Denies headache(s), Denies focal weakness and Denies numbness Psychiatric: Psychiatric: Reports no additional psychiatric complaints Endocrine: Endocrine: Reports no additional endocrine complaints Hematologic/Lymphatic: Hematologic/Lymphatic: Reports no additional hematologic/lymphatic complaints Allergic/Immunologic: Allergic/Immunologic: Reports no additional allergic/immunologic complaints [facility] Past Medical History Medical History Asthma Compound heterozygous MTHFR mutation [id number] Depression HÉCTOR (generalized anxiety disorder) GBS (group B Streptococcus carrier), +RV culture, currently GERD (gastroesophageal reflux disease) History of miscarriage 01/04/18 Maternal varicella, non-immune Obesity 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 Smoker Surgical History Surgical History History of brain surgery 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 developed seizures at that time Family History Family History (Updated 01/11/20 @ 15:38 by Tate Cui RN) Mother Diabetes mellitus Gastritis Depression Father Sibling Depression Social History Social History Smoking packs per day: 0.5 Smoking cigarettes per day: 10.0 Years smoked: 5 Smoking pack-years: 2.50 Smoking status: Current every day smoker Tobacco type: cigarettes Alcohol intake: never Substance use: never Gender identity (if verbalized by the patient): Female Spiritual care concerns: No Agree to blood products: Yes Exam Const: General: cooperative, no acute distress and alert Nutritional Nabeel
[2020-09-23] MEDS: HYDROcodone/acetaminophen (*CRX) 5-325 MG TABLET 1 TAB PO (20:13)
== END 2020-09-23 20:30 | disposition home or self-care (01) ==
PROVIDERS: Emergency Medicine; Emergency Provider Emergency Medicine; PCP Physician Assistant
DX: K80.20 Calculus of gallbladder without cholecystitis without obstruction (principal); R10.84 Generalized abdominal pain
CPT/HCPCS: 36415; 76705; 80053; 81001; 81025; 83690; 85025; 93005; 99284; A9270

== ENCOUNTER → 2020-09-30 01:55 | Outpatient (CLI) | payer BC, SELFPAY ==
[2020-09-30 17:39] LABS: SARS-CoV-2 RNA PCR Negative
== END ==
PROVIDERS: PCP Physician Assistant; Visit Provider Surgery
DX: Z01.812 Encounter for preprocedural laboratory examination (principal); Z20.822 Contact with and (suspected) exposure to COVID-19
CPT/HCPCS: C9803; U0003; U0005

== ENCOUNTER 2020-10-02 02:54 | Day surgery (SDC) | payer BC, SELFPAY ==
[2020-10-01 11:14] VITALS: BMI 39.1
[2020-10-02] VITALS (11 sets, daily range): BP systolic 128–156; BP diastolic 72–90; PULSE 63–88; RESP 14–22; TEMP 36.1–36.3; O2SAT 92–100
--- NOTE | ~2020-10-02 | XR_ITS ---
EXAMINATION: XR cholangiogram surg 1st inj DATE: 10/02/2020 13:41 INDICATION: Cholelithiasis. TECHNIQUE: 98 fluoroscopic images of the right upper quadrant were obtained during intraoperative cho langiography performed by the surgeon. I was not present in the operating room. Fluoroscopy exposure time was 17 seconds. COMPARISON: Abdomen ultrasound 09/23/2020 FINDINGS: There is a catheter in the cystic duct. The common duct is normal in caliber. Contrast pass es to the duodenum. No choledocholithiasis. IMPRESSION: 1. Normal intraoperative cholangiogram. Reviewed, dictated and finalized at location A.
[2020-10-02] MEDS: ACETAMINOPHEN 500 MG TABLET 1000 MG PO (11:21)
--- NOTE | 2020-10-02 11:24 | WPDANESEPPF ---
Anes - Initial Pre Proc Eval Procedure: Operation Date: 10/02/20 12:00 Proposed Procedures p Laparoscopic Cholecystectomy, Possible Intraoperative Cholangiogram, Possible Open - Enoch Blount MD Date/Time: 10/02/20 11:24 Surgeon: Enoch Blount MD Pre Op Diagnosis: cholelithiasis with cholecystitis Patient Data Age: 20 Gender: F Height: 1.65 m Weight: 106.6 kg Allergies Allergy/AdvReac Type Severity Reaction Status Date / Time bee venom protein (honey bee) Allergy Severe Anaphylaxis Verified 10/02/20 11:16 [bees] Penicillins Allergy Severe Hives Verified 10/02/20 11:16 Home Medications Medication Instructions Recorded Confirmed Type albuterol sulfate [ProAir HFA] 2 puff INHALATION QID PRN 01/11/20 10/02/20 History escitalopram oxalate 20 mg PO DAILY 03/19/20 10/02/20 History hydrocodone-acetaminophen 1 tablet PO Q8H PRN #10 tablet 09/23/20 10/02/20 Rx levofloxacin 500 mg PO DAILY 5 Days #5 tablet 09/23/20 10/02/20 Rx Patient hx anesthesia problems: none Family hx anesthesia problems: none PMFSH Past Medical History Medical History Asthma Compound heterozygous MTHFR mutation [id number] Depression HÉCTOR (generalized anxiety disorder) GBS (group B Streptococcus carrier), +RV culture, currently GERD (gastroesophageal reflux disease) History of miscarriage 01/04/18 Maternal varicella, non-immune Obesity 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 Smoker Surgical History Surgical History History of brain surgery 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 developed seizures at that time Family History Family History Mother Diabetes mellitus Gastritis Depression Father Sibling Depression Social History Social History Smoking packs per day: 0.5 Smoking cigarettes per day: 10.0 Years smoked: 5 Smoking pack-years: 2.50 Smoking status: Current every day smoker Tobacco type: cigarettes Alcohol intake: never Substance use: never Living arrangements: other Gender identity (if verbalized by the patient): Female Spiritual care concerns: No Agree to blood products: Yes Anes - Eval Final PreProcedure Day of Procedure 10/02/20 11:24 Patient weight: obese Heart: regular rate and rhythm Lungs: decreased breath sounds Airway: Mallampati scale class II Neurological: alert and oriented ASA classification: III Emergent: no Anesthetic plan: proceed Anesthesia type and monitoring: general ETT and standard monitoring Informed Consent: The patient's anesthetic plan and its attendant risks and benefits were discussed with the patient/family/POA. Questions were solicited and answers provided to the satisfaction of the patient/family/POA.
[2020-10-02] MEDS: LACTATED RINGERS 1,000 ML 30 ML IV CONT ×2 (11:30→14:53)
[2020-10-02] MEDS: KETOROLAC 15 MG/ML VIAL (*BKC) IV PUSH (11:40)
--- NOTE | 2020-10-02 11:48 | WPDHPUPDATE1 ---
History and Physical Update Update Date/Time: 10/02/20 11:48 History and Physical has been reviewed, including an updated exam of the patient. There are changes in the patient's condition. She is improved compared to early this week and is now not having any RUQ pain. Risks, benefits, and alternatives have been discussed and questions answered. Patient agrees to proceed with procedure.
[2020-10-02] MEDS: ceFAZolin 2 GM/D5W 50 ML 2 GM/50 ML BAG IVPB (12:07)
[2020-10-02 12:12] LABS: Alanine Aminotransferase 18 U/L (4-35); Albumin Level 4.4 g/dL (3.5-5.1); Alkaline Phosphatase 113 U/L (38-126); Amylase 43 U/L (30-110); Aspartate Amino Transferase 29 U/L (14-36); Bilirubin,Total 0.4 mg/dL (0.2-1.3); Lipase 18 U/L (23-300)
[2020-10-02] MEDS: BUPIVACAINE/EPINEPHRINE 0.5% 30 ML VIAL INFILTRATE (12:38)
--- NOTE | 2020-10-02 15:04 | W.PM.PROC2 ---
Procedure Note - Detailed Date of Procedure 10/02/20 Pre-op Diagnosis cholelithiasis with cholecystitis Post-op Diagnosis same Procedure Performed Laparoscopic cholecystectomy with intraoperative cholangiogram Surgeon Enoch Blount MD Nursery Technician Koffi [employer] Enforcement Officer Anesthesia general Indications 8 days prior to the day of surgery the patient was in the emergency room with epigastric and right upper quadrant pain and was discovered to have signs of cholelithiasis with possible acute cholecystitis by CT, but normal WBC count and normal liver function tests. Therefore, she was seen in the office last week and with continued symptoms it was recommended that she consider having a cholecystectomy. Findings Fibrotic white thick gallbladder with white bile upon aspiration. Suspected acute cholecystitis with cholelithiasis able to be palpated. Patient had a very narrow triangle of [place] with a obvious large hepatic artery densely stuck to the superior medial edge of the gallbladder neck by chronic fibrosis. Description of Procedure Procedure Details: Patient was seen preoperatively in the holding area and risks, benefits and alternatives confirmed. Patient was taken to the operating room and general anesthesia was induced. A time out was then preformed with the surgery team confirming patient and site of surgery. The abdomen was prepped and draped in the usual sterile fashion. Incision was made just below the umbilicus. Two stay sutures of O- Vicryl were used to elevate the mid-line fascia beneath the umbilicus and a small incision was made under direct vision. The peritoneum was entered. The 12 mm Bassett cannula was introduced under direct vision. First under low flow and then under high flow the abdomen was insufflated with carbon dioxide never exceeding a pressure of 14. Three 5 mm trocars were then introduced under direct vision. The following trocars were introduced under direct vision: a 12 mm in the epigastrium and two 5 mm trocars along the right costal margin. There were significant adhesions of the omentum to the underside of the gallbladder and these were taken down with blunt and sharp dissection. Bovie cautery was used for hemostasis. Because we could not grasp the gallbladder I went ahead and used a long laparoscopic needle to aspirate the upper end of the gallbladder. Approximately 5-10 cc of white bile was aspirated into a syringe but we could not get anymore to come out. This was sent a urine sterile urine cup for culture and sensitivity aerobic anaerobic and Gram stain. The gall bladder was then able to be grasped and the cystic duct and artery were dissected free and I carefully tried to identify a window of safety. However, we found that the neck of the gallbladder was densely fibrotic and there was a short wide cystic duct such that we could see its junction with the common duct immediately superior to its junction was a pulsating approximately 10 mm artery which I suspect was the right hepatic artery. Since the cystic artery usually comes off of this we carefully dissected between it and the cystic duct and then along it until we found what appeared to be the anterior branch of the cystic artery. I was able to get around it and put to clips on it between end of the gallbladder but there was not room for the 3rd. Therefore I chose to go ahead with the cholangiogram 1st before finding any window of safety. I then used a 10 mm endo-clip applications programmer to place just 1 clip on the gallbladder side of the cystic duct. A small hole was made in the cystic duct with endoshears and a cholagio-cath introduced. This was held in place with a single 10 mm clip. A cholangiogram was obtained revealing free flow into the cystic duct, common bile duct, common hepatic, right and left hepatic ducts with free flow into the duodenum with no filling defects in the intra nor extrahepatic biliary tree and no dilation. The catheter was removed and the cystic
== END 2020-10-02 17:45 | disposition home or self-care (01) ==
PROVIDERS: PCP Physician Assistant; Visit Provider Surgery
PROC: 0FT44ZZ Resection of Gallbladder, Percutaneous Endoscopic Approach (ICD-10-PCS; CPT 47562; principal; 2020-10-02 12:00)
DX: K80.10 Calculus of gallbladder with chronic cholecystitis without obstruction (principal); J45.909 Unspecified asthma, uncomplicated; E72.12 Methylenetetrahydrofolate reductase deficiency; F41.1 Generalized anxiety disorder; K21.9 Gastro-esophageal reflux disease without esophagitis; F32.9 Major depressive disorder, single episode, unspecified; Z79.51 Long term (current) use of inhaled steroids; F17.210 Nicotine dependence, cigarettes, uncomplicated; E66.9 Obesity, unspecified; Z68.38 Body mass index [BMI] 38.0-38.9, adult; Z22.330 Carrier of Group B streptococcus
CPT/HCPCS: 47563; 36415; 74300; 80076; 82150; 83690; 87070; 87075; 87205; 88304; A9270; C1713; J0690; J1100; J1885; J2250; J2405; J2704; J2710; J3010; J7120; Q9966